=== PATIENT | female | born 1945 | race Caucasian/White ===

== ENCOUNTER 2021-06-11 07:49 | Outpatient (CLI) | payer MEDICARE, SELFPAY ==
--- NOTE | 2021-06-11 08:57 | ECG_ITS ---
Measurements Intervals [place] Rate: 68 P: 44 CO: 183 QRS: -32 QRSD: 93 T: 25 QT: 388 QTc: 413 Interpretive Statements SINUS RHYTHM LEFT AXIS DEVIATION INCOMPLETE RIGHT BUNDLE BRANCH BLOCK MINIMAL Q WAVES- INFERIOR LEADS BASELINE ARTIFACT- I, II, III, AVR, AVL, AVF, V3 BORDERLINE ECG Electronically Signed On 06-11-2021 9:12:49 CDT by Karsten Elaine D.O.
[2021-06-11 09:32] LABS: Albumin Level 4.4 g/dL (3.5-5.1); Estimated Glomerular Filt Rate > 60; Glucose 109 mg/dL (65-110)
[2021-06-11 09:56] LABS: Basophils Absolute Auto 0.1 K/mm3 (0.0-0.1); Basophils Percent Auto 0.6 % (0.2-1.2); Eosinophils Absolute Auto 0.4 K/mm3 (0-0.3); Eosinophils Percent Auto 4.4 % (0-4.4); Hematocrit 44.3 % (37.0-47.0); Immature Granulocyte Absolute 0.05 K/mm3 (0.00-0.031); Immature Granulocyte Percent A 0.5 % (0-0.5); Lymphocytes Absolute Auto 0.93 K/mm3 (0.9-3.2); Lymphocytes Percent Auto 9.5 % (18.3-44.2); Mean Corpuscular HGB Conc 31.6 g/dl (32-36); Mean Corpuscular Hemoglobin 26.6 pg (26-34); Mean Corpuscular Volume 84.1 fl (80-100); Monocytes Absolute Auto 0.7 K/mm3 (0.1-0.6); Monocytes Percent Auto 6.8 % (2.6-8.5); Neutrophils Absolute Auto 7.7 K/mm3 (1.3-6.7); Neutrophils Percent Auto 78.2 % (45.5-73.1); Platelet Count Result 316 k/mm3 (150-375); Red Blood Count 5.27 M/mm3 (4.2-5.4); Red Cell Distribution Width 14.5 % (11.5-14.5); White Blood Count 9.8 K/mm3 (4.5-10.0)
[2021-06-11 10:00] LABS: Urine Cotinine NEGATIVE
[2021-06-11 12:00] LABS: Hemoglobin A1C 5.9 % (<5.7)
== END 2021-06-11 07:50 | disposition home or self-care (01) ==
PROVIDERS: PCP Internal Medicine; Visit Provider Orthopaedic Surgery
DX: Z01.818 Encounter for other preprocedural examination (principal); M17.0 Bilateral primary osteoarthritis of knee; I45.10 Unspecified right bundle-branch block; Z51.81 Encounter for therapeutic drug level monitoring; Z79.899 Other long term (current) drug therapy
CPT/HCPCS: 80307; 82040; 82565; 82947; 83036; 85025; 86850; 86900; 86901; 87081; 93005

== ENCOUNTER 2021-06-25 15:10 | Observation (INO) | payer MEDICARE, SELFPAY ==
--- NOTE | 2021-06-21 19:33 | WPDANESEPP ---
Anes - Eval Pre Procedure Procedure: Operation Date: 06/24/21 07:30 Proposed Procedures p Right Total Knee Arthroplasty, Left Knee Injection - Tad Ibarra MD Date/Time: 06/21/21 19:33 Pre Op Diagnosis: osteoarthritis bilateral knees Patient Data Age: 75 Gender: F Height: 1.7 m Weight: 87.1 kg Allergies Allergy/AdvReac Type Severity Reaction Status Date / Time No Known Allergies Allergy Verified 06/11/21 08:07 Home Medications Medication Instructions Recorded Confirmed Type budesonide-formoterol HFA 160 2 puff INHALATION Q12H 03/05/21 06/20/21 History mcg-4.5 mcg/actuation aerosol inhaler lovastatin 20 mg tablet 20 mg PO DAILY 03/05/21 06/20/21 History quinapril 40 mg tablet 40 mg PO DAILY 03/05/21 06/20/21 History umeclidinium 62.5 mcg/actuation 1 inh INHALATION DAILY 03/05/21 06/20/21 History blister powder for inhalation albuterol sulfate 2 puff INHALATION Q4-5H PRN 06/11/21 06/20/21 History ibuprofen 200 mg PO TID PRN 06/11/21 06/20/21 History loratadine 10 mg PO DAILY 06/11/21 06/20/21 History multivitamin [Multiple Vitamin] 1 tablet PO DAILY 06/11/21 06/20/21 History omeprazole 20 mg PO DAILY 06/11/21 06/20/21 History rivaroxaban 10 mg tablet 10 mg PO DAILY #14 tablet 06/18/21 06/20/21 Rx Patient hx anesthesia problems: none Family hx anesthesia problems: none PMFSH Past Medical History Medical History (Updated 06/21/21 @ 19:33 by Trey Ashford DO) COPD (chronic obstructive pulmonary disease) Degenerative arthritis of knee, bilateral GERD (gastroesophageal reflux disease) Hyperlipidemia Hypertension Family History Family History Other Diabetes mellitus Heart disease Social History Social History Smoking packs per day: 1 Smoking cigarettes per day: 20.0 Years smoked: 40 Smoking pack-years: 40.00 Smoking status: Former smoker Tobacco type: cigarettes Smoking end date: 05/16/01 Alcohol intake: former Alcohol use details: SOCIALLY IN PAST Substance use: never Additional living arrangements comments: SON STAYS WITH PATIENT ON WEEKENDS Gender identity (if verbalized by the patient): Female Spiritual care concerns: No Exam Day of Procedure 06/21/21 19:33
--- NOTE | 2021-06-21 19:34 | WPDANESPNB ---
Anes - Peripheral Nerve Block Date/Time: 06/21/21 19:34 I have discussed with the patient/family/POA the placement of a peripheral nerve block for post-operative pain management, including associated risks, benefits, complications, and side effects. Alternative methods of post-operative analgesia were detailed. Questions were solicited and answers provided to the satisfaction of the patient/family/POA. Time-Out: A pre-procedural Time-Out was completed immediately before starting the procedure and confirmed: Patient Identification, Site, Procedure, Patient Position and the Availability of Requisite Equipment. Clinical Indications: Acute post-operative pain management requested by the operative surgeon. Nerve Block Insertion Note Anes-nerve block: adductor canal right Patient position: supine Skin prep: chlorhexidine Needle: 22 gauge, stimulating, insulated echogenic needle. Needle length: 80 mm Technique: ultrasound Injectate: bupivacaine 0.5% with epi 5 mcg/ml (30cc - no epi) Observations: tolerated well Complications: none Procedure start time:: 721 Procedure end time:: 724
[2021-06-24] VITALS (15 sets, daily range): BP systolic 122–188; BP diastolic 45–80; PULSE 63–85; RESP 15–25; TEMP 36.2–37.1; O2SAT 91–100
[2021-06-24] MEDS: LACTATED RINGERS 1,000 ML 30 ML IV CONT ×2 (06:41→10:13)
[2021-06-24] MEDS: ACETAMINOPHEN 500 MG TABLET 1000 MG PO ×3 (06:43→23:33)
[2021-06-24] MEDS: TRANEXAMIC ACID 1,000MG/ISO100 1,000 MG/100 ML BAG 200 MG IVPB (06:43)
--- NOTE | 2021-06-24 06:52 | WPDANESEFPP ---
Anes - Eval Final PreProcedure Day of Procedure 06/24/21 06:52 Patient weight: overweight Heart: regular rate and rhythm Lungs: clear to auscultation and normal air movement Airway: Mallampati scale class II Neurological: alert and oriented Last oral intake: >/= 8 hours ASA classification: III Emergent: no Anesthetic plan: proceed Anesthesia type and monitoring: regional spinal and standard monitoring Informed Consent: The patient's anesthetic plan and its attendant risks and benefits were discussed with the patient/family/POA. Questions were solicited and answers provided to the satisfaction of the patient/family/POA.
--- NOTE | 2021-06-24 07:15 | WPDHPUPDATE1 ---
History and Physical Update Update Date/Time: 06/24/21 07:15 History and Physical has been reviewed, including an updated exam of the patient. There are NO changes in the patient's condition. Risks, benefits, and alternatives have been discussed and questions answered. Patient agrees to proceed with procedure.
[2021-06-24] MEDS: ceFAZolin 2 GM/D5W 50 ML 2 GM/50 ML BAG IVPB ×3 (07:33→23:33)
[2021-06-24] MEDS: BUPIVACAINE/EPINEPHRINE 0.25% 10 ML VIAL 60 ML INFILTRATE (08:40)
[2021-06-24] MEDS: GENTAMICIN BONE CEMENT REFOBACIN 1 EACH TOPICAL (09:00)
[2021-06-24] MEDS: ceFAZolin SODIUM 1 GM VIAL IV PUSH (09:16)
--- NOTE | 2021-06-24 10:10 | P.OP_ITS ---
Procedure Note - Detailed Date of Procedure 06/24/21 Pre-op Diagnosis osteoarthritis bilateral knees Post-op Diagnosis same Procedure Performed Right total knee replacement, left knee intra-articular injection. Surgeon Tad Ibarra MD Supervisor [employer] [place] Anesthesia regional and spinal Indications see H&P Description of Procedure The patient was identified and proper site identified. In the preop holding area the anesthesia team performed a right sub sartorial block after which the patient was taken to the operating room and transferred to the OR table positioning supine taking care to pad the torso and extremities. After a spinal anesthetic was administered, a nonsterile tourniquet was placed high on the right thigh. The right lower extremity was prepped and draped in the usual sterile fashion. While this was being done, the left knee was injected intra- articularly using sterile technique with 2 mL of 1% lidocaine and 20 mg of Kenalog without incident. Band-Aid was applied there. The extremity was exsanguinated and with the knee flexed tourniquet was inflated to Three hundred mmHg remaining up for approximately 54 minutes. An anterior midline incision was made and a modified medial parapatellar approach was used. Infra and suprapatellar fat pads were excised. At its thinnest point the patella was already up for out nine or 10 mm, at its thickest point only 18 mm. Patelloplasty was performed resecting the marginal osteophytes but no further resection was made and no implant used on the patella. Using the intramedullary guide the distal femur was cut in the proper orientation for the size Sixty- five femoral component. Using the extramedullary guide the tibia was cut perpendicular to the long axis protecting collateral ligaments and popliteal structures. It was sized to a 71. Flexion and extension gaps were balanced. Trial reduction was undertaken and the weight-bearing line was noted to passed through the center of the joint. Proximal tibia was drilled and punched in the proper orientation for the real component. Trial components were removed. The bone surfaces were washed with pulsatile lavage and dried. The real components were cemented simultaneously. The knee was held in extension until the cement had cured. Excess cement was removed from the joint. After trialing it was determined that the 10 mm insert gave full range of motion from 0-120 degrees of flexion and the patella tracked in the femoral groove with no lift-off. After final lavage the joint the real 10 insert was placed and secured with a locking bar. A Betadine and saline wash was placed into the wound and allowed to sit for approximately 3 minutes and then evacuated. Periarticular tissues were infiltrated with 60 cc of 0.25% Marcaine and epinephrine solution. Surgicel powder was used for additional hemostasis The extensor mechanism was repaired with #2 Vicryl suture and 0 looped PDS suture. Subcu was reapproximated with three 0 Monocryl and 2-0 Stratafix with tissue adhesive for the skin. A sterile dressing was applied. She tolerated the procedure well, was awakened and extubated, transferred to the bed and was taken to recovery area in stable condition. There were no known intraoperative complications. Perioperative antibiotics were administered. Estimated Blood Loss 100 Tourniquet Time 54 Drains No Packing No Pathology none sent Complications No immediate complications Condition stable Disposition PACU
--- NOTE | 2021-06-24 11:20 | ADMGEN ---
This patient, Kimi Watts, was admitted to Medical Room 254-01. Patient/family oriented to hospital policies and general routines including ID bracelet, bed and alarms, visiting hours, pain management, procedures, bathroom and other care routines, personal items, smoking policy, room service/diet, and visiting hours. Information on how to activate the Rapid Response Team has been discussed. Patient/Family are encouraged to report perceived risks to care and to ask questions if they do not understand what they are told or what they should do.
[2021-06-24] MEDS: KETOROLAC 15 MG/ML VIAL (*BKC) IV PUSH ×3 (12:22→23:33)
[2021-06-24] MEDS: oxyCODONE HCL (*CRX) 5 MG TAB IR PO ×3 (13:15→20:16)
--- NOTE | 2021-06-24 15:00 | WPDCN ---
Assessment and Plan Assessment and plan (1) Degenerative arthritis of knee, bilateral: Qualifiers: Osteoarthritis type: unspecified Qualified Code(s): M17.0 - Bilateral primary osteoarthritis of knee Code(s): M17.0 - Bilateral primary osteoarthritis of knee Status: Chronic Assessment and Plan: Postoperative day 0, status post right total knee replacement and left knee intra-articular injection. Wound care and pain control will be deferred to Dr. Samson as well as DVT prophylaxis. PT/OT consulted. Check baseline labs in a.m. (2) Hypertension: Code(s): I10 - Essential (primary) hypertension Status: Acute Assessment and Plan: Blood pressures were reviewed and they were initially elevated postoperatively, likely due to pain, but have improved. Continue antihypertensives and monitor blood pressures daily. (3) Hyperlipidemia: Code(s): E78.5 - Hyperlipidemia, unspecified Status: Acute Assessment and Plan: Continue statin and check LFTs. (4) Chronic obstructive pulmonary disease: Code(s): J44.9 - Chronic obstructive pulmonary disease, unspecified Status: Acute Assessment and Plan: No acute bronchospasm. Continue maintenance inhalers. (5) Gastroesophageal reflux disease: Code(s): K21.9 - Gastro-esophageal reflux disease without esophagitis Status: Acute Assessment and Plan: Continue PPI. Additional Plan Thank you for allowing us to participate in this patient's care. Please do not hesitate to contact us with any questions. Supervising physician for this medical consultation is Dr. Chester Cantu. HPI Data of Consult Date/Time: 06/24/21 15:00 Requesting Physician: Tad Ibarra MD Primary Care Provider: Brodie Maurer, Consult Narrative Narrative: This is a 75-year-old female status post elective right total knee replacement whom the hospitalist service has been consulted for management of her medical conditions postoperatively. Her medical history is significant for osteoarthritis, hypertension, COPD and hyperlipidemia. She has had longstanding pain in both knees, right worse than left, thus she elected for replacement of her right knee today. She also had a left knee intra-articular injection. Her surgery was performed under regional and spinal anesthesia with no immediate complications documented an estimated blood loss of 100 mL. She had quite a bit of pain immediately after the surgery but is now under control and she has been doing well. She has been ambulating to the bathroom with a walker and has eaten dinner without issue. She denies postoperative fever, chills, sweats, chest pain, shortness of breath, nausea, and vomiting. She also denies paresthesias, skin color, and temperature changes distal to the surgical site. Review of Systems Review of Systems: Twelve systems were reviewed with pertinent positives and negatives as per HPI. No recent cold or flu symptoms. She denies exposure to those positive for COVID 19. No history of venous thromboembolism. Except as documented, all other systems were reviewed and are negative. [facility] Past Medical History Medical History (Updated 06/25/21 @ 00:07 by Manuela Bernardo PA-C) Chronic obstructive pulmonary disease Degenerative arthritis of knee, bilateral Gastroesophageal reflux disease Hyperlipidemia Hypertension Osteoarthritis Surgical History Surgical History (Updated 06/25/21 @ 00:07 by Manuela Bernardo PA-C) History of appendectomy History of bilateral cataract extraction History of right knee joint replacement (06/24/21) History of right salpingo-oophorectomy Family History Family History Other Diabetes mellitus Heart disease Social History Social History (Updated
[2021-06-24] MEDS: DOCUSATE SODIUM 100 MG CAPSULE PO (17:23)
[2021-06-24] MEDS: SENNOSIDES 8.6 MG TABLET 17.2 MG PO (20:16)
--- NOTE | 2021-06-24 23:47 | PCRCNOTE ---
Window of time for administration has passed. See next scheduled administration.
[2021-06-25] VITALS (7 sets, daily range): BP systolic 108–138; BP diastolic 41–60; PULSE 66–81; RESP 18–22; TEMP 36.5–36.8; O2SAT 91–97
--- NOTE | ~2021-06-25 | XR_ITS ---
EXAMINATION: XR knee RT 2V DATE: 06/24/2021 10:25 INDICATION: Right knee arthroplasty. Postop. TECHNIQUE: 2 views of right knee were obtained. COMPARISON: None. FINDINGS: There is a total right knee arthroplasty without patellar resurfacing in near-anatomic alig nment. No fracture. There is gas in the knee joint and soft tissues, consistent with recent surgery. IMPRESSION: 1. Total right knee arthroplasty in near-anatomic alignment. Reviewed, dictated and finalized at location A.
[2021-06-25] MEDS: oxyCODONE HCL (*CRX) 5 MG TAB IR PO ×6 (01:00→21:05)
[2021-06-25 05:41] LABS: Hemoglobin 11.3 g/dL (12.0-15.0); Mean Corpuscular HGB Conc 30.5 g/dl (32-36); Mean Corpuscular Hemoglobin 26.4 pg (26-34); Mean Corpuscular Volume 86.4 fl (80-100); Mean Platelet Volume 9.6 fl (7.4-10.4); Platelet Count Result 255 k/mm3 (150-375); Red Blood Count 4.28 M/mm3 (4.2-5.4); Red Cell Distribution Width 14.8 % (11.5-14.5); White Blood Count 13.4 K/mm3 (4.5-10.0)
[2021-06-25 05:51] LABS: Alanine Aminotransferase 15 U/L (4-35); Albumin Level 3.5 g/dL (3.5-5.1); Alkaline Phosphatase 57 U/L (38-126); Anion Gap 6 mmol/L (8-16); Aspartate Amino Transferase 25 U/L (14-36); Bilirubin,Total 0.5 mg/dL (0.2-1.3); Blood Urea Nitrogen 22 mg/dL (7-17); Calcium 8.9 mg/dL (8.4-10.2); Carbon Dioxide 28 mmol/L (22-30); Chloride 98 mmol/L (98-107); Estimated CRCL calculation 58 ml/min; Estimated Glomerular Filt Rate > 60; Glucose 117 mg/dL (65-110); Magnesium 1.9 mg/dL (1.6-2.3); Potassium 4.4 mmol/L (3.4-5.0); Sodium 132 mmol/L (137-145)
[2021-06-25] MEDS: ceFAZolin 2 GM/D5W 50 ML 2 GM/50 ML BAG IVPB (06:13)
[2021-06-25] MEDS: ACETAMINOPHEN 500 MG TABLET 1000 MG PO ×3 (06:13→23:04)
--- NOTE | 2021-06-25 07:25 | PM.DS ---
DS: Admitting Diagnosis Admitting Diagnosis osteoarthritis right knee DS: Discharge Diagnosis Discharge Diagnosis (1) History of right knee joint replacement: Onset Date: 06/24/21 Code(s): Z96.651 - Presence of right artificial knee joint Status: Resolved Assessment and Plan: Plan discharge home today. Home health begins her tomorrow. DS: Summary Hospital Course Reason for hospitalization: Observation after outpatient procedure. Hospital Course: Following the patient's surgery, she was admitted to the floor. She being and physical therapy made good progress and is going to be discharged home today. Status at Discharge Functional status at discharge: uses cane/walker Overall status at discharge: patient is not back to baseline Time Spent with Patient Time attestation: Total time spent providing and/or coordinating discharge services: Exam Const: General: cooperative, no acute distress and alert Nutritional Appearance: other Orientation/consciousness: patient oriented x3 Limitations: no limitations HENMT: Head: normal to inspection Ears: hearing grossly normal bilaterally Face and sinus: face symmetric Mouth: Yes moist mucous membranes Teeth and gingiva: fair dentition Eyes: Alignment and Position: alignment normal and position normal Sclera: sclerae normal Neck: Neck: normal visual inspection and nontender Chest: Chest palpation & inspection: normal inspection of the chest Resp: Effort & Inspection: normal respiratory effort and able to speak in complete sentences GI: Inspection: other ( Nontender, nondistended) Skin: General skin exam: normal color Rashes: no rashes Neuro: General: patient oriented x3 Cognition (Neuro): normal cognition Speech: normal speech Extrem: General: normal to inspection and other Other: Exam of the right knee shows dry dressing, minimal swelling and no bruising. Grossly, neurovascular status right lower extremity is intact. Calves negative. Psych: Appearance: grossly normal Mental Status: mental status grossly normal DS: Data Data Completed and Pending Labs on day of discharge: Labs from last 24 hours 06/25/21 06/25/21 05:19 05:19 WBC 13.4 H RBC 4.28 Hgb 11.3 L Hct 37.0 MCV 86.4 MCH 26.4 MCHC 30.5 L RDW 14.8 H Plt Count 255 MPV 9.6 Sodium 132 L Potassium 4.4 Chloride 98 Carbon Dioxide 28 Anion Gap 6 L BUN 22 H Creatinine 0.80 Estim Creat Clear Calc 58 Estimated GFR > 60 Glucose 117 H Calcium 8.9 Magnesium 1.9 Total Bilirubin 0.5 AST 25 ALT 15 Alkaline Phosphatase 57 Total Protein 6.0 L Albumin 3.5 Discharge Plan Discharge Patient Disposition: Home Health Service Discharge Instructions: Per Care Coordination, patient to discharge with [facility] ([phone]) for PT/OT and long term services. 3 times daily for 20 minutes each time, reclining in bed with ice packs over the incision and a pillow underneath the calf of the affected leg, not under the knee. Your wound is glued so it is okay to get into the shower and get the wound wet in two days. Be sure to read through all the information that came from a my office and the hospital. Most of the answers you will need can be found that material. Call the office with any questions that you cannot find answers to, or concerns you may have. After the Xarelto is completed, start taking one coated 325 mg aspirin daily and do this for four more weeks. Please call [facility] at as soon as possible to verify your follow-up appointment to be seen in 2 weeks. Also, call the office with any orthopedic/surgical related questions prior to follow-up. Be sure to get up and move around several times daily but do not overdo it. You have a prescription for Celebrex that you will take every day for one week. Take the arthritis formula Tylenol 650 mg tablet on an 8 hour schedule. A good 8
[2021-06-25] MEDS: ONDANSETRON INJ 4 MG/2 ML VIAL IV PUSH (08:44)
--- NOTE | 2021-06-25 09:03 | PM.IMPN ---
Progress Note: A&P Assessment and Plan (1) Degenerative arthritis of knee, bilateral: Qualifiers: Osteoarthritis type: unspecified Qualified Code(s): M17.0 - Bilateral primary osteoarthritis of knee Code(s): M17.0 - Bilateral primary osteoarthritis of knee Status: Chronic Assessment and Plan: Postoperative day 1 s/p right total knee replacement and left knee intra-articular injection Wound care and pain control will be deferred to Dr. Samson as well as DVT prophylaxis PT/OT (2) Hypertension: Code(s): I10 - Essential (primary) hypertension Status: Acute Assessment and Plan: Stable Was elevated post op, likely due to pain Continue antihypertensives Monitor (3) Hyperlipidemia: Code(s): E78.5 - Hyperlipidemia, unspecified Status: Acute Assessment and Plan: Continue statin LFTs wnl (4) Chronic obstructive pulmonary disease: Code(s): J44.9 - Chronic obstructive pulmonary disease, unspecified Status: Acute Assessment and Plan: No acute exacerbation Continue maintenance inhalers (5) Gastroesophageal reflux disease: Code(s): K21.9 - Gastro-esophageal reflux disease without esophagitis Status: Acute Assessment and Plan: Continue PPI Zofran prn Additional Plan Thank you for allowing us to participate in this patient's care. Please do not hesitate to contact us with any questions. Subjective Date/time seen: 06/25/21 09:03 Interval history: pt seen evaluated; complains of some nausea this morning Review of Systems Review of Systems: All systems reviewed & are unremarkable except as noted in HPI and below Exam Const: General: no acute distress, alert and awake Orientation/consciousness: patient oriented x3 HENMT: Head: normocephalic and atraumatic Ears: hearing grossly normal bilaterally and external ears normal Face and sinus: face symmetric Mouth: Yes Normal oral and palatal mucosa present Eyes: Pupils: Equal, round and reactive pupils present EOM: EOMs intact bilaterally Neck: Neck: full ROM, trachea midline and no JVD Thyroid: thyroid normal Chest: Chest palpation & inspection: normal inspection of the chest Resp: Effort & Inspection: normal respiratory effort Auscultation: clear to auscultation bilaterally Cardio: Jugular venous distension: no JVD Rate: regular rate Rhythm: regular rhythm Heart sounds: S1 normal heart sound present and S2 normal heart sound present GI: Inspection: normal to inspection GI Palp: Yes Soft to palpation Percussion: Yes normal to percussion Auscultation: normal bowel sounds : General: Yes no CVA tenderness Back/Spine/Pelvis: Back: no CVA tenderness Skin: General skin exam: normal color Rashes: no rashes Neuro: General: patient oriented x3 and CN's II-XI intact bilaterally Cranial nerves: Yes Equal, round and reactive pupils present Speech: normal speech Extrem: Right lower extremity: full ROM Left lower extremity: full ROM Other: surgical dressing clean dry and intact Psych: Appearance: grossly normal Affect: normal affect Judgement: Good judgement present (Psych) Objective Data Vital Signs Vital Signs: Vital Signs - 24 hr 06/24/21 10:13 06/24/21 10:25 06/24/21 10:40 Temperature 36.6 C Pulse Rate 71 68 65 Respiratory Rate 15 20 25 H Blood Pressure 122/47 L 139/54 L 139/45 L Pulse Oximetry 100 95 93 06/24/21 10:55 06/24/21 11:10 06/24/21 11:25 Temperature 36.4 C L Pulse Rate 67 67 70 Respiratory Rate 20 25 H 18 Blood Pressure 134/66 146/54 H 155/64 H Pulse Oximetry 92 92 91 06/24/21 11:40 06/24/21 12:10 06/24/21 13:10 Temperature 36.2 C L 36.4 C 36.3 C L Pulse Rate 63 69 76 Respiratory Rate 20 22 H 22 H Blood Pressure 178/58 H 186/71 H 188/72 H Pulse Oximetry 93 97 97 06/24/21 14:59 06/24/21 17:1
[2021-06-25] MEDS: DOCUSATE SODIUM 100 MG CAPSULE PO ×2 (10:08→17:40)
[2021-06-25] MEDS: lisinopriL 20 MG TABLET 40 MG PO (10:08)
[2021-06-25] MEDS: LOVASTATIN 20 MG TABLET PO (10:09)
[2021-06-25] MEDS: MULTIVITAMINS THERAPEUTIC TAB (*BKC) 1 TABLET PO (10:09)
[2021-06-25] MEDS: LORATADINE 10 MG TABLET PO (10:09)
[2021-06-25] MEDS: UMECLIDINIUM BROMIDE 62.5 MCG ELLIPTA 1 PUFF INHALATION (10:10)
[2021-06-25] MEDS: PANTOPRAZOLE 40 MG TABLET PO (10:10)
[2021-06-25] MEDS: polyethylene glycoL 3350 17 GM POWD.PACK PO (10:10)
[2021-06-25] MEDS: RIVAROXABAN 10 MG TABLET PO (10:10)
--- NOTE | 2021-06-25 14:00 | PC.NURSE ---
Tyre Finisher And Examiner entered room as AMBULANCE DRIVER PARAMEDIC obtaining vitals, SPO2 85%RA, encouraged deep breaths SPO2 increased to 88%, 2LNC applied SPo2 increased to 93%, PT was encouraged and re-educated on the need to use incentive spirometer. She verbalized understanding and was able to do as directed. Alana Childress APN on floor made aware, advised global technical writer to notify Dr. Ibarra and reporots will keep PT over night to monitor oxygen, continue to encourage incentive spirometer and wean Oxygen. Dr. Ibarra made aware of all the above.
--- NOTE | 2021-06-25 14:52 | WPDANESPN ---
Anes - Prog Note Post-Op Date/Time: 06/25/21 14:52 Cardiovascular status: normal Respiratory status: normal Airway patency: baseline Mental status: baseline Post-Op hydration status: normal Vital Signs: Last Vital Signs Temp 36.7 C 06/25/21 13:15 Pulse 78 06/25/21 13:15 Resp 18 06/25/21 13:15 BP 130/60 06/25/21 13:15 Pulse Ox 93 06/25/21 13:15 Pain Score (VAS): 3 I/O: Intake & Output 06/24/21 06/25/21 06/25/21 23:59 07:59 15:59 Intake Total 640 400 120 Output Total 300 Balance 640 100 120 Laboratory Tests 06/25/21 05:19 06/25/21 05:19 06/25/21 06/25/21 05:19 05:19 WBC 13.4 H RBC 4.28 Hgb 11.3 L Hct 37.0 MCV 86.4 MCH 26.4 MCHC 30.5 L RDW 14.8 H Plt Count 255 MPV 9.6 Sodium 132 L Potassium 4.4 Chloride 98 Carbon Dioxide 28 Anion Gap 6 L BUN 22 H Creatinine 0.80 Estim Creat Clear Calc 58 Estimated GFR > 60 Glucose 117 H Calcium 8.9 Magnesium 1.9 Total Bilirubin 0.5 AST 25 ALT 15 Alkaline Phosphatase 57 Total Protein 6.0 L Albumin 3.5 Post-procedural complaints: none Patient Feedback: Patient satisfied with anesthetic care.
--- NOTE | 2021-06-25 15:01 | PCPTNOTE ---
Attempted to see patient for P.M. PT treatment, however patient declined due to c/o not feeling well. Patient states she feels nauseated and very weak. PT will continue to follow per plan of care.
[2021-06-25] MEDS: SENNOSIDES 8.6 MG TABLET 17.2 MG PO (21:05)
[2021-06-26] MEDS: oxyCODONE HCL (*CRX) 5 MG TAB IR PO ×3 (01:25→08:30)
[2021-06-26 04:56] VITALS: BP 146/51; PULSE 87; RESP 20; TEMP 36; O2SAT 93
[2021-06-26] MEDS: ACETAMINOPHEN 500 MG TABLET 1000 MG PO (06:20)
--- NOTE | 2021-06-26 06:43 | PM.PNORT ---
Progress Note: A&P Assessment and Plan (1) History of right knee joint replacement: Onset Date: 06/24/21 Code(s): Z96.651 - Presence of right artificial knee joint Status: Resolved Assessment and Plan: 75-year-old female postop day two right knee replacement. Doing well this morning. Anticipate discharge home today. Instructions reviewed again with her in detail. No change to other discharge orders from yesterday. Subjective Subjective Date/Time Seen: 06/26/21 06:43 Post Op day: 2 Principal diagnosis: Status post right total knee replacement Interval history: 75-year-old female postop day two right total knee replacement. She was kept yesterday because of poor saturations. She is sitting up in the chair and doing well this morning. Tolerated therapy findings today. She feels like she is ready to go home. Exam Const: General: cooperative, comfortable and no acute distress Nutritional Appearance: well nourished Chest: Chest palpation & inspection: normal inspection of the chest Other: Breathing unlabored Extrem: Other: Right knee wound dry. Neurovascular status right lower extremity unremarkable. Objective Data Vital Signs Vital Signs: Vital Signs - 24 hr 06/25/21 08:57 06/25/21 13:15 06/25/21 14:00 Temperature 97.7 F 98.1 F 98.3 F Pulse Rate 75 78 81 Respiratory Rate 18 18 18 Blood Pressure 136/50 L 130/60 138/50 L Pulse Oximetry 91 93 97 06/25/21 20:00 06/25/21 20:12 06/25/21 20:37 Temperature 97.7 F Pulse Rate 69 Respiratory Rate 22 H Blood Pressure 108/41 L Pulse Oximetry 97 94 97 06/26/21 04:56 Temperature 96.8 F L Pulse Rate 87 Respiratory Rate 20 Blood Pressure 146/51 H Pulse Oximetry 93 Intake/Output Intake/Output: Intake & Output 06/23/21 06/24/21 06/25/21 06/26/21 23:59 23:59 23:59 23:59 Intake Total 1130 / 1130 520 / 520 290 / 290 Output Total 300 / 300 Balance 1130 / 1180.0 220 / 220 290 / 290 Meds/Results Medications: Active Medications Generic Name Dose Route Start Last Admin Trade Name Freq PRN Reason Stop Dose Admin Acetaminophen 1,000 mg 06/24/21 15:00 06/26/21 06:20 Acetaminophen 500 Mg Tablet PO 1,000 mg Q8H YAS Administration Albuterol 2 puff 06/24/21 11:12 Albuterol Sulfate (*Sp) Aerosol 1 Puff INHALATION Q4H PRN Dyspnea Budesonide/Formoterol Fumarate 2 puff 06/24/21 20:00 06/25/21 19:57 Budesonide/Form 160-4.5 Mcg (*Sp) INHALATION 2 puff Q12HRT YAS Administration Docusate Sodium 100 mg 06/24/21 17:00 06/25/21 17:40 Docusate Sodium 100 Mg Capsule PO 100 mg BID YAS Administration Ibuprofen 200 mg 06/24/21 11:18 Ibuprofen 200 Mg Tablet PO TID PRN Pain Rated 1-3 Lisinopril 40 mg 06/25/21 09:00 06/25/21 10:08 Lisinopril 20 Mg Tablet PO 40 mg DAILY YAS Administration Loratadine 10 mg 06/25/21 09:00 06/25/21 10:09 Loratadine 10 Mg Tablet PO 10 mg DAILY YAS Administration Lovastatin 20 mg 06/25/21 09:00 06/25/21 10:09 Lovastatin 20 Mg Tablet PO 20 mg DAILY YAS Administration Multivitamins Therapeutic 1 tablet 06/25/21 09:00 06/25/21 10:09 Multivitamins Therapeutic Tab (*Bkc) PO 1 tablet DAILY YAS Administration Naloxone HCl 0.1 mg 06/24/21 11:12 Naloxone Hcl 0.4 Mg/Ml Vial IV PUSH Q2M PRN Opiate Reversal Ondansetron HCl 4 mg 06/25/21 08:35 06/25/21 08:44 Ondansetron Inj 4 Mg/2 Ml Vial IV PUSH 4 mg Q6H PRN Administration Nausea And Vomiting Oxycodone HCl 5 mg 06/24/21 11:12 Oxycodone Hcl (*Crx) 5 Mg Tab Ir PO Q4H PRN Pain Rated 7-10 Oxycodone HCl 5 mg 06/24/21 13:00 06/26/21 04:45 Oxycodone Hcl (*Crx) 5 Mg Tab Ir PO 5 mg Q4HR YAS Administration Pantoprazole Sodium 40 mg 06/25/21 09:00 06/25/21 10:10 Pantoprazole 40 Mg Tablet PO 40 mg QAM YAS Administration Polyethylene Glycol 17 gm 06/25/21 09:00 06/25/21 10:10 Polyethyle
[2021-06-26 08:30] VITALS: BP 114/52; PULSE 75; O2SAT 91
[2021-06-26] MEDS: DOCUSATE SODIUM 100 MG CAPSULE PO (08:30)
[2021-06-26] MEDS: lisinopriL 20 MG TABLET 40 MG PO (08:31)
[2021-06-26] MEDS: RIVAROXABAN 10 MG TABLET PO (08:31)
[2021-06-26] MEDS: PANTOPRAZOLE 40 MG TABLET PO (08:31)
[2021-06-26] MEDS: LORATADINE 10 MG TABLET PO (08:31)
[2021-06-26] MEDS: polyethylene glycoL 3350 17 GM POWD.PACK PO (08:31)
[2021-06-26] MEDS: MULTIVITAMINS THERAPEUTIC TAB (*BKC) 1 TABLET PO (08:31)
[2021-06-26] MEDS: LOVASTATIN 20 MG TABLET PO (08:31)
--- NOTE | 2021-06-26 09:20 | PM.IMPN ---
Progress Note: A&P Assessment and Plan (1) Status post right knee replacement: Code(s): Z96.651 - Presence of right artificial knee joint Status: Acute Assessment and Plan: POD #2 right total knee replacement performed on 06/24/[address] Ibarra. tolerated the procedure well and pain is well controlled. Management per Orthopedic surgery. Planning for discharge today. (2) Hypertension: Code(s): I10 - Essential (primary) hypertension Status: Acute Assessment and Plan: Blood pressures reviewed and have been well controlled. Continue home quinapril (3) Hyperlipidemia: Code(s): E78.5 - Hyperlipidemia, unspecified Status: Acute Assessment and Plan: LFTs within normal limits. Continue statin. (4) Chronic obstructive pulmonary disease: Code(s): J44.9 - Chronic obstructive pulmonary disease, unspecified Status: Acute Assessment and Plan: Not in acute exacerbation. Maintaining adequate oxygenation on room air. Continue Incruse Ellipta, Symbicort, and albuterol as needed. Subjective Date/time seen: 06/26/21 09:20 Interval history: Date of service: 06/26/2021 Kimi Watts is a 75-year-old female with history of COPD, GERD, hyperlipidemia, hypertension who is now POD #2 right knee replacement. She tolerated the procedure well and her pain is well controlled. Reports knee pain is 5/10 today. She was able to get from her bed to the chair without much pain. She has no additional complaints. She has been eating and drinking well. No nausea, vomiting, fever, or chills. No shortness breath, cough, or chest pain. Her last bowel movement was 1 day prior to surgery. She denies abdominal cramping, bloating. She is passing flatus. She plans to go home today. She has no stairs in her home and will have assistance if needed. Review of Systems Review of Systems: All systems reviewed & are unremarkable except as noted in HPI and below Exam Narrative: Ms. Watts is a well-nourished, well-appearing 75-year-old female who is sitting in a chair at the bedside. She appears comfortable and is in NARD. Neuro: awake, alert and oriented x4, speech clear, no focal neuro deficits noted HEENMT: normocephalic, atraumatic, EOMI, sclerae anicteric, moist oral mucosa Neck: supple, no lymphadenopathy Respiratory: clear to auscultation bilaterally, nonlabored breathing Cardio: regular rate, regular rhythm with S1-S2 Abdomen: nondistended, normoactive bowel sounds, soft, nontender to palpation Extremities: Right knee in brace. Right thigh and calf nontender to palpation. Right lower extremity with 1+ pedal edema, BLE without erythema, or tenderness to palpation. Neurovascularly intact. Able to wiggle toes bilaterally. Skin: No rashes or lesions, warm and dry Psych: appropriate mood and affect, judgment and insight intact Objective Data Vital Signs Vital Signs: Vital Signs - 24 hr 06/25/21 13:15 06/25/21 14:00 06/25/21 20:00 Temperature 98.1 F 98.3 F Pulse Rate 78 81 Respiratory Rate 18 18 Blood Pressure 130/60 138/50 L Pulse Oximetry 93 97 97 06/25/21 20:12 06/25/21 20:37 06/26/21 04:56 Temperature 97.7 F 96.8 F L Pulse Rate 69 87 Respiratory Rate 22 H 20 Blood Pressure 108/41 L 146/51 H Pulse Oximetry 94 97 93 Intake/Output Intake/Output: Intake & Output 06/23/21 06/24/21 06/25/21 06/26/21 23:59 23:59 23:59 23:59 Intake Total 1130 520 290 Output Total 300 Balance 1130 220 290 Meds/Results Medications: Active Medications Generic Name Dose Route Start Last Admin Trade Name Freq PRN Reason Stop Dose Admin Acetaminophen 1,000 mg 06/24/21 15:00 06/26/21 06:20 Acetaminophen 500 Mg Tablet PO 1,000 mg Q8H YAS Administration Albuterol 2 puff 06/24/21 11:12 Albuterol Sulfate (*Sp) Aerosol 1 Puff INHALATION Q4H PRN Dyspnea Budesonide/Formoterol Fumarate 2 puff 06/24/21 20
[2021-06-26] MEDS: UMECLIDINIUM BROMIDE 62.5 MCG ELLIPTA 1 PUFF INHALATION (09:50)
[2021-06-26 09:51] VITALS: O2SAT 91
== END 2021-06-26 11:35 | disposition home health service (06) ==
LOC: ANHSURGERY 15:25 → ANH2MED 21:41
PROVIDERS: Physician Assistant; Admitting Provider Orthopaedic Surgery; PCP Internal Medicine; Visit Provider Orthopaedic Surgery
PROC: (CPT 27447; principal; 2021-06-24 07:30)
DX: M17.0 Bilateral primary osteoarthritis of knee (principal); G89.18 Other acute postprocedural pain; I10 Essential (primary) hypertension; E78.5 Hyperlipidemia, unspecified; J44.9 Chronic obstructive pulmonary disease, unspecified; K21.9 Gastro-esophageal reflux disease without esophagitis; Z79.51 Long term (current) use of inhaled steroids; Z79.01 Long term (current) use of anticoagulants; Z87.891 Personal history of nicotine dependence
CPT/HCPCS: 27447; 20610; 64447; 36415; 73560; 80053; 83735; 85027; 94640; 97110; 97116; 97161; 97165; 97530; 97535; A9270; C1713; C1776; G0378; J0690; J1885; J2405; J2704; J3010; J3301; J7120

== ENCOUNTER 2021-07-15 09:58 | Outpatient (RCR) | payer MEDICARE, SELFPAY ==
--- NOTE | 2021-07-15 10:52 | PTOPEVAL ---
Thank you for referring Kimi Watts to [facility].? The patient is scheduled to be seen for therapy? __2__x/week for 10 visits. Please review, sign, date and return this plan of care JERONIMO. I agree with and certify that the following plan of care is medically necessary. 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, NEG STRESS TEST W/ PULMONARY WORKUP ~2015 Respiratory History Hx Chronic Obstructive Pulmonary Disease Yes (COPD) Gastrointestinal History Hx Appendectomy Yes Hx Gastroesophageal Reflux Disease Yes Genitourinary History Hx Genitourinary Disorders No Significant History Musculoskeletal History Hx Arthritis Yes: OA BILAT KNEES Hematological History Hx Hematological Disorders No Significant History Endocrine History Hx Endocrine Disorders No Significant History HEENT History Hx Cataracts Yes: BIALT IMPLANTS Integumentary History Hx Shingles Yes Hx Other Skin Disorders Yes: DIME-SIZED RED SPOT ON LT ALCANTAR FROM CAT SCRATCH-WILL SHOW TO DR SHAHNAZ GLEASON Reproductive History Hx Post Menopausal Yes Hx Other Reproductive Disorders Yes: RT FALOPIAN TUBE/OVARY & LT TUBE REMOVED IN PAST Psychosocial History Hx Psychiatric Disorders No Significant History Pain History Has Past Pain Affected Your Daily Life Yes: KNEES Anesthesia History Hx Anesthesia Reactions No Significant History Evaluation Information Problem Diagnosis s/p right TKA Onset 06/24/21 Subjective Information Pt. reports she underwent Query Text:As Reported By Patient/ right TKA 3 weeks ago. Pt. Family reports that she has been doing home health therapy. Pt . reports that she was getting 90 degrees of knee flexion with HH therapy. She states that she is still using a walker. Pt. reports that pain
--- NOTE | 2021-08-19 08:04 | PTOPEVAL ---
Thank you for referring Kimi Watts to [facility].? The patient is scheduled to be seen for therapy? ____x/week for ___ weeks. Please review, sign, date and return this plan of care JERONIMO. I agree with and certify that the following plan of care is medically necessary. 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 ADMIN/EXERCISE PROGRAM, NEG STRESS TEST W/ PULMONARY WORKUP ~2015 Respiratory History Hx Chronic Obstructive Pulmonary Disease Yes (COPD) Gastrointestinal History Hx Appendectomy Yes Hx Gastroesophageal Reflux Disease Yes Genitourinary History Hx Genitourinary Disorders No Significant History Musculoskeletal History Hx Arthritis Yes: OA BILAT KNEES Hematological History Hx Hematological Disorders No Significant History Endocrine History Hx Endocrine Disorders No Significant History HEENT History Hx Cataracts Yes: BIALT IMPLANTS Integumentary History Hx Shingles Yes Hx Other Skin Disorders Yes: DIME-SIZED RED SPOT ON LT ALCANTAR FROM CAT SCRATCH-WILL SHOW TO DR SHAHNAZ GLEASON Reproductive History Hx Post Menopausal Yes Hx Other Reproductive Disorders Yes: RT FALOPIAN TUBE/OVARY & LT TUBE REMOVED IN PAST Psychosocial History Hx Psychiatric Disorders No Significant History Pain History Has Past Pain Affected Your Daily Life Yes: KNEES Anesthesia History Hx Anesthesia Reactions No Significant History Evaluation Information Problem Diagnosis R TKA Onset 06/24/21 Subjective Information The patient reports that she Query Text:As Reported By Patient/ does not have many limitations Family in regards to her knee. She states she has difficulty with doing too much in standing but it is more due to her breathing than her knee pain. She states that she is still sleeping in her recliner, but on
--- NOTE | 2021-10-08 13:13 | PCPTNOTE ---
10/08/21 - patient has not been to skilled PT in over a month. as of this date, she will be dc'd from skilled PT services and all progress towards goals will be taken from her most recent evaluation/note. LIA
== END 2021-08-19 13:37 | disposition home or self-care (01) ==
LOC: CHSPT 09:58
PROVIDERS: Visit Provider Nurse Practitioner
DX: Z96.651 Presence of right artificial knee joint (principal)
CPT/HCPCS: 97016; 97110; 97161

== ENCOUNTER 2023-01-13 10:05 | Outpatient (CLI) | payer MEDICARE, SELFPAY ==
[2023-01-13 10:31] LABS: Basophils Absolute Auto 0.06 K/mm3 (0.00-0.10); Basophils Percent Auto 0.6 % (0.0-1.0); Eosinophils Absolute Auto 0.65 K/mm3 (0.02-0.50); Hematocrit 37.1 % (35.0-42.0); Hemoglobin 11.1 g/dL (11.7-13.8); Immature Granulocyte Absolute 0.05 K/mm3 (0.00-0.00); Immature Granulocyte Percent A 0.5 % (0.0-0.0); Lymphocytes Absolute Auto 0.96 K/mm3 (1.10-4.50); Lymphocytes Percent Auto 10.3 % (18.0-42.0); Mean Corpuscular HGB Conc 29.9 g/dL (32.0-36.0); Mean Corpuscular Hemoglobin 24.6 pg (27.0-31.0); Mean Corpuscular Volume 82.1 fL (78.0-102.0); Mean Platelet Volume 9.6 fl (9.2-11.8); Monocytes Absolute Auto 0.78 K/mm3 (0.10-0.90); Monocytes Percent Auto 8.3 % (2.0-11.0); Neutrophils Absolute Auto 6.9 K/mm3 (1.7-7.2); Neutrophils Percent Auto 73.3 % (50.0-70.0); Platelet Count Result 330 K/mm3 (150-420); Red Blood Count 4.52 M/mm3 (4.20-5.40); Red Cell Distribution Width 16.6 % (11.6-14.4); White Blood Count 9.4 K/mm3 (4.8-10.8)
[2023-01-13 10:54] LABS: Anion Gap 6 mmol/L (8-16); Blood Urea Nitrogen 13 mg/dL (7-18); Calcium 8.4 mg/dL (8.5-10.1); Carbon Dioxide 33 mmol/L (21-32); Chloride 102 mmol/L (98-108); Estimated Glomerular Filt Rate > 60; Glucose 106 mg/dL (70-99); Osmolality Calculated 292 mOsm/kg (285-295); Potassium 4.4 mmol/L (3.5-5.1); Sodium 141 mmol/L (136-145)
== END 2023-01-13 10:06 | disposition home or self-care (01) ==
LOC: CHSLAB 10:11
PROVIDERS: PCP Internal Medicine
DX: I25.118 Atherosclerotic heart disease of native coronary artery with other forms of angina pectoris (principal)
CPT/HCPCS: 36415; 80048; 85025